=== PATIENT | male | born 1985 | race Caucasian/White ===

== ENCOUNTER → 2020-11-07 | Outpatient (CLI) | payer BC ==
[2016-07-11 20:45] VITALS: BP 128/68
[~2020-11-07] MED LIST: FLEXERIL 1010 MG/TAB PO; NAPROXEN500 MG PO; NORCO 325 MG-51 TA1 PO
== END ==
LOC: LAB 09:11 → RAD 09:11
DX: M25.511 Pain in right shoulder (principal)

== ENCOUNTER → 2020-11-13 | Outpatient (CLI) | payer BC ==
[2016-07-11 20:45] VITALS: BP 128/68
== END ==
LOC: RAD 08:13
DX: M77.8 Other enthesopathies, not elsewhere classified (principal)